=== PATIENT | female | born 1950 | race Caucasian/White ===

== ENCOUNTER → 2016-12-18 | Outpatient (CLI) | payer OTHER, MEDICARE ==
--- NOTE | 2016-12-18 14:15 | RAD ---
Acute abdomen series with chest, 12/18/2016: History: Irritable bowel, constipation There is a moderate amount of stool and gas in the colon in a nonspecific pattern. No free air is seen in the abdomen. There is no evidence of organomegaly. Moderate scattered vascular calcifications are present. There are mild multilevel degenerative changes in the spine. The heart size and pulmonary vascularity are normal. There is mild linear scarring or atelectasis in the lower chest, left greater than right. No pulmonary consolidation is seen. There is no evidence of pleural fluid. IMPRESSION: No acute abdominal abnormality is detected.
== END | disposition home or self-care (01) ==
LOC: RAD 12:49
PROVIDERS: ATTEND Internal Medicine Gastroenterology
DX: K58.9 Irritable bowel syndrome, unspecified (principal)
CPT/HCPCS: 74022

== ENCOUNTER → 2020-04-09 | Outpatient (CLI) | payer OTHER, MEDICARE ==
--- NOTE | 2020-04-09 11:09 | CARD ---
MR#: [id number] Date of Study: 04/09/2020 Ordering Physician: RICKI FERMIN, Referring Physician: RICKI FERMIN Tech: Kayleen Cohen RDCS APPROVED REPORT EXAM: Two-dimensional and M-mode echocardiogram with Doppler and color Doppler. Other Information Quality : Good INDICATION Hypertension/HCVD Elevated Calcium Score RISK FACTORS Hypertension Obesity Hyperlipidemia Diabetes 2D DIMENSIONS RVDd3.0 (2.9-3.5cm)Left Atrium(2D)3.8 (1.6-4.0cm) IVSd1.0 (0.7-1.1cm)Aortic Root(2D)2.7 (2.0-3.7cm) LVDd4.6 (3.9-5.9cm)LVOT Diameter2.0 (1.8-2.4cm) PWd1.1 (0.7-1.1cm)LVDs2.3 (2.5-4.0cm) FS (%) 30.0 %SV82.0 ml LVEF(%)60.0 (>50%) Aortic Valve AoV Peak Chandrakant.234.9cm/sAoV VTI43.6cm AO Peak GR.22.1mmHgLVOT Peak Chandrakant.117.6cm/s AO Mean GR.11mmHgAVA (VMAX)1.57cm2 MALACHI (VTI)2.10cm2 Mitral Valve MV E Hofnyvxv899.1cm/sMV DECEL ASFK129zp MV A Imqrndpp336.5cm/sE/A Ratio0.9 Tricuspid Valve TR P. Xbroaelo685in/sRAP OKCXMYTT9qkGd TR Peak Gr.27scMmEZRM74lvPi Pulmonary Vein S1 Txgjwxsn07.0cm/sD2 Jgdhbkpw39.5cm/s LEFT VENTRICLE The left ventricle is normal size. There is normal left ventricular wall thickness. The left ventricu lar systolic function is normal and the ejection fraction is within normal range. The Ejection Fracti on is 55-60%. There is normal LV segmental wall motion. Transmitral Doppler flow pattern is Grade I-a bnormal relaxation pattern. RIGHT VENTRICLE The right ventricle is normal size. The right ventricular systolic function is normal. ATRIA The left atrium size is normal. The right atrium size is normal. The interatrial septum is intact wit h no evidence for an atrial septal defect or patent foramen ovale as noted on 2-D or Doppler imaging. AORTIC VALVE The aortic valve is mildly thickened but opens well. Doppler and Color Flow revealed no significant a ortic regurgitation. There is no significant aortic valvular stenosis. MITRAL VALVE The mitral valve is calcified but opens well. Mitral annular calcification is mild. There is no evide nce of mitral valve prolapse. There is no mitral valve stenosis. Doppler and Color Flow revealed no m itral valve regurgitation. TRICUSPID VALVE The tricuspid valve is normal in structure and function. Doppler and Color Flow revealed trace tricus pid regurgitation. The PA pressure was estimated at 20 mmHg. There is no tricuspid valve stenosis. PULMONIC VALVE The pulmonary valve is normal in structure and function. Doppler and Color Flow revealed trace pulmon ic valvular regurgitation. There is no pulmonic valvular stenosis. GREAT VESSELS The aortic root is normal in size. The ascending aorta is normal in size. The IVC is normal in size a nd collapses >50% with inspiration. PERICARDIAL EFFUSION There is no evidence of significant pericardial effusion. Critical Notification Critical Value: No <Conclusion> The left ventricle is normal size. The left ventricular systolic function is normal and the ejection fraction is within normal range. The Ejection Fraction is 55-60%. Doppler and Color Flow revealed no significant aortic regurgitation. There is no significant aortic valvular stenosis. Doppler and Color Flow revealed no mitral valve regurgitation. Doppler and Color Flow revealed trace tricuspid regurgitation. The PA pressure was estimated at 20 mmHg. Signed by : Camilo Fuentes MD Electronically Approved : 04/09/2020 11:08:44
== END | disposition home or self-care (01) ==
LOC: ECHO 10:00
PROVIDERS: ATTEND Internal Medicine Cardiovascular Disease
DX: I34.0 Nonrheumatic mitral (valve) insufficiency (principal); R93.1 Abnormal findings on diagnostic imaging of heart and coronary circulation
CPT/HCPCS: 93306

== ENCOUNTER → 2020-07-01 | Outpatient (CLI) | payer OTHER, MEDICARE ==
[~2020-07-01] VITALS: Ht 157.5 cm; Wt 88.9 kg
[~2020-07-01] MED LIST: NORMAL SALINE IV ONE; SINCALIDE IV ONE
--- NOTE | 2020-07-01 09:59 | RAD ---
EXAM: HEPATOBILIARY SCINTIGRAPHY WITH GALLBLADDER EJECTION FRACTION CALCULATION. HISTORY: Abdominal pain/nausea. TECHNIQUE: 5.5 mCi technetium-99m Choletec were administered intravenously and scintigraphic images o f the abdomen obtained. After filling of the gallbladder, 1.78 mcg of sincalide were infused and the gallbladder ejection fraction calculated. FINDINGS: There is prompt hepatic clearance of tracer from the blood pool. There is homogeneous distr ibution throughout the liver. There is normal filling of the gallbladder and clearance into the bilia ry tree and small bowel. The gallbladder ejection fraction is 54% (normal >35%). IMPRESSION: 1. Normal gallbladder ejection fraction. Electronically signed by: Heladio Fermin MD (07/01/2020 9:57 AM) [id number]
== END ==
LOC: NM 09:09
PROVIDERS: ATTEND Family Medicine
DX: R10.13 Epigastric pain (principal); R19.7 Diarrhea, unspecified; R11.2 Nausea with vomiting, unspecified
CPT/HCPCS: 78227; A9537; J2805

== ENCOUNTER → 2021-03-28 | Outpatient (CLI) | payer OTHER, MEDICARE ==
--- NOTE | 2021-03-28 10:08 | RAD ---
EXAM: Bilateral digital screening mammogram with tomosynthesis. HISTORY: 70-year-old female presents for screening mammography. TECHNIQUE: Full-field digital craniocaudal and mediolateral oblique 2D and 3D tomosynthesis images of both breasts are obtained for evaluation. Computer aided detection was applied. COMPARISON: 03/11/2019 BREAST PARENCHYMAL DENSITY: Level B - Scattered fibroglandular densities. FINDINGS: There is no new suspicious mass, microcalcification or region of architectural distortion. IMPRESSION: BI-RADS Category 2: Benign finding(s). RECOMMENDATION: Annual mammography is recommended. If your mammogram demonstrates that you have dense breast tissue, which could hide abnormalities, and if you have other risk factors for breast cancer that have been identified, you might benefit from s upplemental screening tests that may be suggested by your ordering physician. Dense breast tissue, i n and of itself, is a relatively common condition. This information is not provided to cause undue c oncern, but rather to raise your awareness and to promote discussion with your physician regarding th e presence of other risk factors, in addition to dense breast tissue. A report of your mammography re sults will be sent to you and your physician. You should contact your physician if you have any ques tions or concerns regarding this report. Mammography is a sensitive method for finding small breast cancers, but it does not detect them all a nd is not a substitute for careful clinical examination. A negative mammogram does not negate a clin ically suspicious finding and should not result in delay in biopsying a clinically suspicious abnorma lity. PQRS compliance statement - Patient information was entered into a reminder system with a target due date for the next mammogram. "Our facility is accredited by the [employer] Mammography Program." Electronically signed by: Christa Danielle MD (03/28/2021 10:06 AM) [id number]
== END ==
LOC: MAMMO 09:38
PROVIDERS: ATTEND Family Medicine
DX: Z12.31 Encounter for screening mammogram for malignant neoplasm of breast (principal)
CPT/HCPCS: 77063; 77067

== ENCOUNTER → 2021-06-27 | Outpatient (CLI) | payer OTHER, MEDICARE ==
--- NOTE | 2021-06-27 17:05 | CARD ---
MR#: [id number] Date of Study: 06/27/2021 Ordering Physician: RICKI DELUCA, Referring Physician: RICKI DELUCA, Tech: Destiny Bowman, [facility] APPROVED REPORT EXAM: Two-dimensional and M-mode echocardiogram with Doppler and color Doppler. Other Information Quality : AverageHR: 70bpm INDICATION Hypertension/HCVD RISK FACTORS Hyperlipidemia Diabetes 2D DIMENSIONS RVDd3.9 (2.9-3.5cm)IVSd0.9 (0.7-1.1cm) Aortic Root(2D)2.6 (2.0-3.7cm)LVDd4.9 (3.9-5.9cm) LVOT Diameter2.0 (1.8-2.4cm)PWd1.0 (0.7-1.1cm) Aortic Valve AoV Peak Chandrakant.179.4cm/sAoV VTI44.0cm AO Peak GR.12.9mmHgLVOT Peak Chandrakant.95.3cm/s LVOT VTI 23.02cmAO Mean GR.7mmHg MALACHI (VMAX)1.21df5UYR (VTI)1.68cm2 Mitral Valve MV E Pwsdotxb409.7cm/sMV DECEL RVQP908oz MV A Towzudpp551.7cm/sMV E Mean Gr.3mmHg MV SIP72gwY/A Ratio0.8 MVA (PHT)3.39cm2 TDI E/Lateral E'13.8E/Medial E'12.6 Pulmonary Valve PV Peak Goeedyda435.6cm/sPV Peak Grad.6mmHg Tricuspid Valve TR P. Xgmrjxzs340yf/sRAP YTWIGIBK0duSt TR Peak Gr.22agBnUUQN22eoQu Pulmonary Vein S1 Odxyvggo94.8cm/sD2 Udxzemhf46.8cm/s PVa wkkavfil37deqg LEFT VENTRICLE The left ventricle is normal size. There is normal left ventricular wall thickness. The left ventricu lar systolic function is normal. The Ejection Fraction is 55-60%. There is normal LV segmental wall m otion. Transmitral Doppler flow pattern is Grade I-abnormal relaxation pattern. RIGHT VENTRICLE The right ventricle is borderline dilated. There is normal right ventricular wall thickness. The righ t ventricular systolic function is normal. ATRIA The left atrium is borderline dilated. The right atrium size is normal. The interatrial septum is int act with no evidence for an atrial septal defect or patent foramen ovale as noted on 2-D or Doppler i maging. AORTIC VALVE The aortic valve is calcified but opens well. Doppler and Color Flow revealed trace aortic regurgitat ion. There is no significant aortic valvular stenosis. Calculated aortic valve area is 1.86 cm2 with maximum pressure gradient of 15 mmHg and mean pressure gradient of 8 mmHg. MITRAL VALVE The mitral valve is thickened but opens well. There is no evidence of mitral valve prolapse. There is no mitral valve stenosis. Doppler and Color-flow revealed trace mitral regurgitation. TRICUSPID VALVE The tricuspid valve is normal in structure and function. Doppler and Color Flow revealed trace tricus pid regurgitation with an estimated PAP of 44 mmHg. There is no tricuspid valve stenosis. PULMONIC VALVE The pulmonic valve is not well visualized. Doppler and Color Flow revealed trace pulmonic valvular re gurgitation. GREAT VESSELS The aortic root is normal in size. The IVC is normal in size and collapses >50% with inspiration. PERICARDIAL EFFUSION There is no evidence of significant pericardial effusion. Critical Notification Critical Value: No <Conclusion> The left ventricular systolic function is normal. The Ejection Fraction is 55-60%. There is normal LV segmental wall motion. Transmitral Doppler flow pattern is Grade I-abnormal relaxation pattern. Trace mitral regurgitation. Trace tricuspid regurgitation with an estimated PAP of 44 mmHg. There is no evidence of significant pericardial effusion. Signed by : Ricki Deluca, Electronically Approved : 06/27/2021 17:04:43
--- NOTE | 2021-06-28 09:29 | RAD ---
MR#: [id number] Date of Study: 06/27/2021 Ordering Physician: RICKI DELUCA, Referring Physician: RICKI DELUCA, Tech: Sacha Guadarrama MBA, RDMS, RVT, RDCS, RTR APPROVED REPORT Patient Location: OUT-PATIENT Indications Uncontrolled HTN Renal Artery Doppler Right Renal Artery Left Renal Arter y Proximal 119.0/23.0 cm/secProximal 69.0/11.0 cm/sec Mid 107.0/20.0 cm/secMid 65.0/10.0 cm/sec Distal 171.0/28.0 cm/secDistal 60.0/10.0 cm/sec Renal/Aorta Ratio 1.40Renal/Aorta Ratio 0.57 Prox. Resistive Index 0.81Prox. Resistive Index 0.84 Mid Resistive Index 0.81Mid Resistive Index 0.84 Distal Resistive Index 0.84Distal Resistive Index 0.84 Rt. Segmental A. 24.0/7.0 cm/secLt. Segmental A. 28.0/6.0 cm/sec Renal Measurements RightLeft Kidney Bmizmy61.5 cm cmKidney Nkoslh86.9 cm cm Right Additional FindingsLeft Additional Findings Aortic Duplex A/PTransverseLongitudinal Proximal Aorta 2.2cm Mid Aorta 1.7cm Distal Aorta 1.3cm Aortic Doppler VelocityWaveform Proximal Aorta 122.0 cm/sec Findings Grayscale images of abdominal aorta showed mild diffuse atherosclerosis without any significant aneur ysm. Spectral waveform and color duplex analysis showed normal velocities without any significant st enosis. Grayscale images of bilateral kidneys are unremarkable with right kidney measuring 11.5 cm and left k idney measuring 13.4 cm. Spectral waveform and color duplex analysis of proximal, mid and distal carey al arteries bilaterally showed velocities within normal range without any significant stenosis. The resistive indicis and renal artery to aortic ratios are within normal limits as well bilaterally. Critical Notification Critical Value: No <Conclusion> No significant renal artery stenosis Signed by : Ricki Deluca, Electronically Approved : 06/28/2021 09:28:36
== END ==
LOC: US 08:50
PROVIDERS: ATTEND Internal Medicine Cardiovascular Disease
DX: I35.1 Nonrheumatic aortic (valve) insufficiency (principal); I10 Essential (primary) hypertension
CPT/HCPCS: 82088; 84244; 93306; 93975